=== PATIENT | female | born 2000 | race Caucasian/White ===

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

== ENCOUNTER 2023-12-16 20:12 | Inpatient (IN) | payer BC ==
[~2023-12-16] VITALS: Ht 165.1 cm; Wt 59.4 kg
[2023-12-16 20:17] VITALS: BP 111/72; PULSE 101; O2SAT 98
[2023-12-16 20:46] LABS: BASOPHILS % (AUTO) 0.6 % (0.0-2.0); EOSINOPHILS # (AUTO) 0.2 K/uL (0-0.4); EOSINOPHILS % (AUTO) 2.3 % (0.0-4.0); HEMATOCRIT 38.4 % (36-48); LYMPHOCYTES # (AUTO) 2.5 K/uL (2.5-16.5); MEAN CORPUSCULAR HEMOGLOBIN 29 pg (27-31); MEAN CORPUSCULAR HGB CONC 34 g/dL (33-37); MEAN CORPUSCULAR VOLUME 86.1 fL (80-94); MONOCYTES # (AUTO) 0.4 K/uL (0.8-1.0); MONOCYTES % (AUTO) 5.7 % (1.7-9.3); NEUTROPHILS # (AUTO) 4.7 K/uL (1.8-7.7); NEUTROPHILS % (AUTO) 59.4 % (42.2-75.2); PLATELET COUNT (AUTO) 231 K/uL (140-450); RED BLOOD CELL COUNT(AUTO) 4.47 MIL/uL (4.20-5.40); RED CELL DISTRIBUTION WIDTH 12.7 % (11.6-13.7); WHITE BLOOD COUNT (AUTO) 7.9 K/uL (4.8-10.8)
[2023-12-16 20:55] LABS: ANION GAP 17.3 (8-16); CALCIUM 7.9 mg/dL (8.5-10.1); CARBON DIOXIDE 23.8 mmol/L (21-32); CREATININE 0.6 mg/dL (0.6-1.3); POTASSIUM 3.1 mmol/L (3.5-5.1)
[2023-12-16 20:56] LABS: INR 1.22 (0.8-1.2); PROTHROMBIN TIME 12.7 secs (10.8-13.4)
[2023-12-16 21:02] LABS: ACETAMINOPHEN < 0.5 ug/ml (10-30); ALANINE AMINOTRANSFERASE 24 U/L (12-78); ALBUMIN 3.8 g/dL (3.4-5.0); ALCOHOL, BLOOD 23 mg/dL (<10); ALKALINE PHOSPHATASE 52 U/L (50-136); ASPARTATE AMINOTRANSFERASE 13 U/L (15-37); BILIRUBIN,DIRECT 0.3 mg/dL (0.0-0.3); MAGNESIUM 1.9 mg/dL (1.8-2.4); PHOSPHORUS 5.2 mg/dL (2.5-4.9); SALICYLATE < 2.8 mg/dL (2.8-20.0); TOTAL BILIRUBIN 1.4 mg/dL (0.0-1.0); TOTAL PROTEIN, SERUM 6.6 g/dL (6.4-8.2)
[2023-12-16 21:18] LABS: APPEARANCE,URINE CLEAR (CLEAR); BILIRUBIN,URINE NEGATIVE (NEGATIVE); BLOOD, URINE TRACE-I (NEGATIVE); COLOR,URINE YELLOW (YELLOW); LEUKOCYTE ESTERASE ,URINE NEGATIVE (NEGATIVE); NITRITE, URINE NEGATIVE (NEGATIVE); PROTEIN,URINE NEGATIVE (NEGATIVE); UGLUCOSE NEGATIVE (NEGATIVE); UROBILINOGEN,URINE 0.2 EU/dL (0.2 - 1)
[2023-12-16] MEDS ORDERED: ACETAMINOPHEN 325 MG TAB PO PRN (21:20)
[2023-12-16] MEDS ORDERED: ONDANSETRON 4 MG/2 ML VIAL IVP PRN (21:20)
[2023-12-16 21:25] LABS: BACTERIA,URINE FEW /HPF (None Seen); RBC,URINE 0-5 /HPF (0-5); SQUAMOUS EPITHELIAL CELL,UR 0-3 (FEW) /LPF (0-3 (FEW)); WBC,URINE 0-5 /HPF (0-5)
[2023-12-16 21:29] LABS: AMPHETAMINE, URINE NEGATIVE ng/ml (NEG <=1000); BARBITURATE, URINE NEGATIVE ng/ml (NEG <=200); BENZODIAZEPINE, URINE NEGATIVE ng/mL (NEG <=200); CANNABINOID, URINE POSITIVE ng/mL (NEG <=50); COCAINE, URINE NEGATIVE ng/mL (NEG <=300); OPIATE, URINE NEGATIVE ng/mL (NEG <=2000); PHENCYCLIDINE SCREEN,URINE NEGATIVE ng/mL (NEG <=25)
[2023-12-16] MEDS: NACL 0.9% 1,000 ML IV SCH (21:56)
[2023-12-16] MEDS ORDERED: BUPR-10 PO (22:17)
[2023-12-16] MEDS ORDERED: ESCI5TAB PO (22:17)
[2023-12-16] MEDS ORDERED: CLON0.5T1 PO (22:17)
[2023-12-17] VITALS (14 sets, daily range): BP systolic 98–133; BP diastolic 56–84; PULSE 118–138; RESP 14–30; TEMP 97.8–98.5; O2SAT 81–100
[2023-12-17] MEDS: POTASSIUM CHLORIDE 10 MEQ TABER PO ONE (00:23)
[2023-12-17] MEDS: LORazepam 2 MG/ML VIAL IVP PRN (01:08)
[2023-12-17] MEDS: KCL 20 MEQ IN 100 mL PREMIX 100 ML IV ONE (02:40)
[2023-12-17] MEDS: MAG SULF 2000 MG/WATER PREMIX 50 ML IV ONE (06:09)
[2023-12-17] MEDS: LORazepam 2 MG/ML VIAL IVP ONE (06:42)
[2023-12-17] MEDS ORDERED: LORazepam 2 MG/ML VIAL IVP PRN (07:00)
[2023-12-17 07:18] LABS: BASOPHILS # (AUTO) 0.1 K/uL (0.00-0.22); BASOPHILS % (AUTO) 0.6 % (0.0-2.0); EOSINOPHILS % (AUTO) 0.1 % (0.0-4.0); HEMATOCRIT 36.6 % (36-48); HEMOGLOBIN 12.4 g/dL (12.0-16.0); LYMPHOCYTES # (AUTO) 1.2 K/uL (2.5-16.5); MEAN CORPUSCULAR HEMOGLOBIN 29 pg (27-31); MEAN CORPUSCULAR HGB CONC 34 g/dL (33-37); MONOCYTES # (AUTO) 0.5 K/uL (0.8-1.0); MONOCYTES % (AUTO) 4.7 % (1.7-9.3); NEUTROPHILS % (AUTO) 83.6 % (42.2-75.2); PLATELET COUNT (AUTO) 247 K/uL (140-450); RED BLOOD CELL COUNT(AUTO) 4.25 MIL/uL (4.20-5.40); RED CELL DISTRIBUTION WIDTH 12.9 % (11.6-13.7); WHITE BLOOD COUNT (AUTO) 10.8 K/uL (4.8-10.8)
[2023-12-17 07:29] LABS: ANION GAP 15.3 (8-16); CALCIUM 8.5 mg/dL (8.5-10.1); CARBON DIOXIDE 23.4 mmol/L (21-32); CREATININE 0.7 mg/dL (0.6-1.3); POTASSIUM 3.7 mmol/L (3.5-5.1)
[2023-12-17] MEDS: ENOXAPARIN 40 MG/0.4 ML SYR SUBQ SCH (18:00)
[2023-12-17 19:50] LABS: BLOOD GAS PCO2 33.6 mmHg (35-45); BLOOD GAS PH 7.398 (7.35-7.45)
[2023-12-17 19:51] LABS: BLOOD GAS BASE EXCESS -3.7 mmol/L (-2.0-2.0); BLOOD GAS HCO3 20.3 mmol/L (22-26)
[2023-12-17 19:52] LABS: BLOOD GAS O2 SAT% 94.6 % (92.0-98.5)
[2023-12-17] MEDS: LORazepam 2 MG/ML VIAL IM/IVP PRN (19:57)
[2023-12-18] VITALS (27 sets, daily range): BP systolic 109–151; BP diastolic 51–119; PULSE 107–132; RESP 17–42; TEMP 97.6–99; O2SAT 85–99
[2023-12-18] MEDS: NACL 0.9% 1,000 ML IV SCH (01:07)
[2023-12-18 05:15] LABS: BASOPHILS % (AUTO) 0.2 % (0.0-2.0); HEMATOCRIT 37.1 % (36-48); HEMOGLOBIN 12.4 g/dL (12.0-16.0); LYMPHOCYTES # (AUTO) 0.5 K/uL (2.5-16.5); LYMPHOCYTES % (AUTO) 2.3 % (20.5-51.1); MEAN CORPUSCULAR HEMOGLOBIN 29 pg (27-31); MEAN CORPUSCULAR HGB CONC 33 g/dL (33-37); MEAN CORPUSCULAR VOLUME 85.8 fL (80-94); MONOCYTES # (AUTO) 0.4 K/uL (0.8-1.0); MONOCYTES % (AUTO) 1.6 % (1.7-9.3); NEUTROPHILS # (AUTO) 22.7 K/uL (1.8-7.7); NEUTROPHILS % (AUTO) 95.9 % (42.2-75.2); PLATELET COUNT (AUTO) 247 K/uL (140-450); RED BLOOD CELL COUNT(AUTO) 4.33 MIL/uL (4.20-5.40); RED CELL DISTRIBUTION WIDTH 13.2 % (11.6-13.7); WHITE BLOOD COUNT (AUTO) 23.7 K/uL (4.8-10.8)
[2023-12-18 08:28] LABS: ANION GAP 16.8 (8-16); CALCIUM 8.7 mg/dL (8.5-10.1); CARBON DIOXIDE 22.1 mmol/L (21-32); CREATININE 0.7 mg/dL (0.6-1.3); POTASSIUM 3.9 mmol/L (3.5-5.1)
[2023-12-18] MEDS: ENOXAPARIN 40 MG/0.4 ML SYR SUBQ SCH (08:54)
[2023-12-18] MEDS: DEXMEDETOMIDINE HCL 400 MCG in NACL 0.9% 96 ML IV PRN (11:04)
[2023-12-18] MEDS ORDERED: PIPERACILLIN/TAZOBACTAM 3.375 GM VIAL IV ONE (19:58)
[2023-12-18] MEDS: PIPERACILLIN/TAZOBACTAM 3.375 GM in DEXTROSE 5% 50 ML IV SCH (20:03)
[2023-12-19] VITALS (30 sets, daily range): BP systolic 57–122; BP diastolic 45–76; PULSE 110–126; RESP 22–56; TEMP 97.6–102.3; O2SAT 90–100
[2023-12-19] MEDS ORDERED: PIPERACILLIN/TAZOBACTAM 3.375 GM VIAL IV ONE (00:23)
[2023-12-19] MEDS: ALBUTEROL SULFATE/IPRATROPIU 3 ML SOL IH ONE (01:14)
[2023-12-19] MEDS: ALBUTEROL 0.083% 2.5 MG/3 ML NEBU INH SCH (03:00)
[2023-12-19] MEDS: ALBUTEROL SULFATE/IPRATROPIU 3 ML SOL IH SCH (03:00)
[2023-12-19 04:32] LABS: BLOOD GAS PCO2 33.2 mmHg (35-45); BLOOD GAS PH 7.469 (7.35-7.45)
[2023-12-19 04:33] LABS: BLOOD GAS HCO3 23.6 mmol/L (22-26); BLOOD GAS PO2 54.5 mmHg (75-100)
[2023-12-19 04:34] LABS: BLOOD GAS BASE EXCESS 0.4 mmol/L (-2.0-2.0)
[2023-12-19 04:35] LABS: BLOOD GAS O2 SAT% 0.7 % (92.0-98.5)
[2023-12-19] MEDS: ETOMIDATE 20 MG/10 ML VIAL IVP ONE (05:02)
[2023-12-19] MEDS: ROCURONIUM 50 MG/5 ML VIAL IV ONE (05:04)
[2023-12-19] MEDS: PROPOFOL 1000 MG/100 ML PREMIX 100 ML IV PRN (05:53)
[2023-12-19] MEDS: levETIRAcetam 1,000 MG in NACL 0.9% 100 ML IV ONE (06:05)
[2023-12-19] MEDS ORDERED: PROPOFOL 1000 MG/100 ML PREMIX 100 ML IV PRN (06:05)
[2023-12-19] MEDS ORDERED: LORazepam 2 MG/ML VIAL IVP PRN (06:05)
[2023-12-19 06:36] LABS: ANION GAP 15.7 (8-16); CALCIUM 8.6 mg/dL (8.5-10.1); CARBON DIOXIDE 21.6 mmol/L (21-32); CREATININE 0.6 mg/dL (0.6-1.3); POTASSIUM 4.3 mmol/L (3.5-5.1)
[2023-12-19 06:44] LABS: BASOPHILS % (AUTO) 0.1 % (0.0-2.0); EOSINOPHILS % (AUTO) 0.1 % (0.0-4.0); HEMATOCRIT 34.8 % (36-48); HEMOGLOBIN 11.8 g/dL (12.0-16.0); LYMPHOCYTES # (AUTO) 0.6 K/uL (2.5-16.5); LYMPHOCYTES % (AUTO) 2.8 % (20.5-51.1); MEAN CORPUSCULAR HEMOGLOBIN 29 pg (27-31); MEAN CORPUSCULAR HGB CONC 34 g/dL (33-37); MEAN CORPUSCULAR VOLUME 86.6 fL (80-94); MONOCYTES # (AUTO) 0.3 K/uL (0.8-1.0); MONOCYTES % (AUTO) 1.3 % (1.7-9.3); NEUTROPHILS # (AUTO) 19.3 K/uL (1.8-7.7); NEUTROPHILS % (AUTO) 95.7 % (42.2-75.2); PLATELET COUNT (AUTO) 178 K/uL (140-450); RED BLOOD CELL COUNT(AUTO) 4.02 MIL/uL (4.20-5.40); RED CELL DISTRIBUTION WIDTH 13.2 % (11.6-13.7); WHITE BLOOD COUNT (AUTO) 20.1 K/uL (4.8-10.8)
[2023-12-19 07:32] LABS: BLOOD GAS BASE EXCESS -1.3 mmol/L (-2.0-2.0); BLOOD GAS PCO2 32.2 mmHg (35-45); BLOOD GAS PH 7.452 (7.35-7.45); BLOOD GAS PO2 177.8 mmHg (75-100)
[2023-12-19 07:33] LABS: BLOOD GAS O2 SAT% 99.3 % (92.0-98.5)
[2023-12-19] MEDS: levETIRAcetam 1,000 MG in NACL 0.9% 100 ML IV SCH (08:31)
[2023-12-19] MEDS: ACETAMINOPHEN 325 MG TAB NG PRN (13:04)
[2023-12-19] MEDS: lamoTRIgine 25 MG TAB PO SCH (21:05)
[2023-12-20] VITALS (33 sets, daily range): BP systolic 110–127; BP diastolic 64–81; PULSE 85–114; RESP 21–34; TEMP 98.2–101.8; O2SAT 90–100
[2023-12-20 05:26] LABS: BASOPHILS % (AUTO) 0.2 % (0.0-2.0); EOSINOPHILS % (AUTO) 0.1 % (0.0-4.0); HEMATOCRIT 30.2 % (36-48); HEMOGLOBIN 10.1 g/dL (12.0-16.0); LYMPHOCYTES # (AUTO) 0.6 K/uL (2.5-16.5); LYMPHOCYTES % (AUTO) 3.2 % (20.5-51.1); MEAN CORPUSCULAR HEMOGLOBIN 29 pg (27-31); MEAN CORPUSCULAR HGB CONC 33 g/dL (33-37); MEAN CORPUSCULAR VOLUME 86.9 fL (80-94); MONOCYTES # (AUTO) 0.2 K/uL (0.8-1.0); MONOCYTES % (AUTO) 1.3 % (1.7-9.3); NEUTROPHILS # (AUTO) 16.7 K/uL (1.8-7.7); NEUTROPHILS % (AUTO) 95.2 % (42.2-75.2); PLATELET COUNT (AUTO) 167 K/uL (140-450); RED BLOOD CELL COUNT(AUTO) 3.48 MIL/uL (4.20-5.40); RED CELL DISTRIBUTION WIDTH 12.9 % (11.6-13.7); WHITE BLOOD COUNT (AUTO) 17.5 K/uL (4.8-10.8)
[2023-12-20 05:49] LABS: ANION GAP 14.8 (8-16); CALCIUM 8.4 mg/dL (8.5-10.1); CARBON DIOXIDE 22.6 mmol/L (21-32); CREATININE 0.5 mg/dL (0.6-1.3); POTASSIUM 3.4 mmol/L (3.5-5.1)
[2023-12-20] MEDS ORDERED: ALBUTEROL SULFATE/IPRATROPIU 3 ML SOL IH PRN (07:00)
[2023-12-20] MEDS: POTASSIUM CHLORIDE 20% 40 MEQ/15 ML UDC GT SCH (15:25)
[2023-12-20] MEDS: ALBUTEROL SULFATE/IPRATROPIU 3 ML SOL IH SCH (19:03)
[2023-12-20] MEDS: DEXAMETHASONE 4 MG/ML VIAL IVP SCH (20:54)
[2023-12-21] VITALS (29 sets, daily range): BP systolic 116–142; BP diastolic 62–90; PULSE 69–118; RESP 19–35; TEMP 97.9–99.2; O2SAT 90–100
[2023-12-21 05:21] LABS: ANION GAP 14.1 (8-16); CALCIUM 8.3 mg/dL (8.5-10.1); CARBON DIOXIDE 25.5 mmol/L (21-32); CREATININE 0.4 mg/dL (0.6-1.3); POTASSIUM 3.6 mmol/L (3.5-5.1)
[2023-12-21 05:24] LABS: BASOPHILS # (AUTO) 0.1 K/uL (0.00-0.22); BASOPHILS % (AUTO) 0.6 % (0.0-2.0); EOSINOPHILS % (AUTO) 0.2 % (0.0-4.0); HEMATOCRIT 27.8 % (36-48); HEMOGLOBIN 9.4 g/dL (12.0-16.0); LYMPHOCYTES # (AUTO) 0.6 K/uL (2.5-16.5); LYMPHOCYTES % (AUTO) 3.9 % (20.5-51.1); MEAN CORPUSCULAR HEMOGLOBIN 29 pg (27-31); MEAN CORPUSCULAR HGB CONC 34 g/dL (33-37); MONOCYTES # (AUTO) 0.3 K/uL (0.8-1.0); MONOCYTES % (AUTO) 2.2 % (1.7-9.3); NEUTROPHILS # (AUTO) 14.7 K/uL (1.8-7.7); NEUTROPHILS % (AUTO) 93.1 % (42.2-75.2); PLATELET COUNT (AUTO) 199 K/uL (140-450); RED BLOOD CELL COUNT(AUTO) 3.23 MIL/uL (4.20-5.40); RED CELL DISTRIBUTION WIDTH 12.9 % (11.6-13.7); WHITE BLOOD COUNT (AUTO) 15.8 K/uL (4.8-10.8)
[2023-12-21] MEDS: PANTOPRAZOLE 40 MG INJ VIAL IVP SCH (09:30)
[2023-12-21 15:30] LABS: BLOOD GAS BASE EXCESS -2.8 mmol/L (-2.0-2.0); BLOOD GAS PCO2 33.5 mmHg (35-45); BLOOD GAS PH 7.416 (7.35-7.45); BLOOD GAS PO2 63.9 mmHg (75-100)
[2023-12-21 15:31] LABS: BLOOD GAS O2 SAT% 92.7 % (92.0-98.5)
[2023-12-22] VITALS (12 sets, daily range): BP systolic 104–122; BP diastolic 41–70; PULSE 60–123; RESP 15–52; TEMP 97.6–98.6; O2SAT 91–100
[2023-12-22 05:19] LABS: BASOPHILS % (AUTO) 0.2 % (0.0-2.0); EOSINOPHILS % (AUTO) 0.1 % (0.0-4.0); HEMATOCRIT 30.4 % (36-48); HEMOGLOBIN 10.2 g/dL (12.0-16.0); LYMPHOCYTES # (AUTO) 0.9 K/uL (2.5-16.5); LYMPHOCYTES % (AUTO) 7.3 % (20.5-51.1); MEAN CORPUSCULAR HEMOGLOBIN 29 pg (27-31); MEAN CORPUSCULAR HGB CONC 34 g/dL (33-37); MEAN CORPUSCULAR VOLUME 86.3 fL (80-94); MONOCYTES # (AUTO) 0.6 K/uL (0.8-1.0); MONOCYTES % (AUTO) 4.8 % (1.7-9.3); NEUTROPHILS # (AUTO) 10.3 K/uL (1.8-7.7); NEUTROPHILS % (AUTO) 87.6 % (42.2-75.2); PLATELET COUNT (AUTO) 248 K/uL (140-450); RED BLOOD CELL COUNT(AUTO) 3.52 MIL/uL (4.20-5.40); RED CELL DISTRIBUTION WIDTH 12.8 % (11.6-13.7); WHITE BLOOD COUNT (AUTO) 11.7 K/uL (4.8-10.8)
[2023-12-22 05:53] LABS: ANION GAP 14.8 (8-16); CALCIUM 8.6 mg/dL (8.5-10.1); CARBON DIOXIDE 24.9 mmol/L (21-32); CREATININE 0.5 mg/dL (0.6-1.3); POTASSIUM 3.7 mmol/L (3.5-5.1)
[2023-12-22] MEDS ORDERED: phenoL 1.4% SPRAY 20 ML BTL MM PRN (16:15)
[2023-12-23] VITALS (13 sets, daily range): BP systolic 104–120; BP diastolic 57–78; PULSE 55–116; RESP 16–19; TEMP 97.6–98.2; O2SAT 95–98
[2023-12-23] MEDS: PIPERACILLIN/TAZOBACTAM 3.375 GM VIAL IV ONE ×2 (00:28→05:10)
[2023-12-23 06:43] LABS: BASOPHILS % (AUTO) 0.3 % (0.0-2.0); EOSINOPHILS % (AUTO) 0.2 % (0.0-4.0); HEMOGLOBIN 10.7 g/dL (12.0-16.0); LYMPHOCYTES # (AUTO) 0.9 K/uL (2.5-16.5); LYMPHOCYTES % (AUTO) 9.8 % (20.5-51.1); MEAN CORPUSCULAR HEMOGLOBIN 29 pg (27-31); MEAN CORPUSCULAR HGB CONC 35 g/dL (33-37); MEAN CORPUSCULAR VOLUME 84.9 fL (80-94); MONOCYTES # (AUTO) 0.6 K/uL (0.8-1.0); MONOCYTES % (AUTO) 7.1 % (1.7-9.3); NEUTROPHILS # (AUTO) 7.4 K/uL (1.8-7.7); NEUTROPHILS % (AUTO) 82.6 % (42.2-75.2); PLATELET COUNT (AUTO) 281 K/uL (140-450); RED BLOOD CELL COUNT(AUTO) 3.65 MIL/uL (4.20-5.40); RED CELL DISTRIBUTION WIDTH 12.7 % (11.6-13.7)
[2023-12-23 07:03] LABS: ANION GAP 11.1 (8-16); CALCIUM 8.5 mg/dL (8.5-10.1); CARBON DIOXIDE 28.4 mmol/L (21-32); CREATININE 0.4 mg/dL (0.6-1.3); POTASSIUM 3.5 mmol/L (3.5-5.1)
[2023-12-24] VITALS (12 sets, daily range): BP systolic 100–118; BP diastolic 51–78; PULSE 54–85; RESP 16–19; TEMP 97.3–98.5; O2SAT 96–99
[2023-12-24 06:52] LABS: BASOPHILS % (AUTO) 0.1 % (0.0-2.0); EOSINOPHILS # (AUTO) 0.1 K/uL (0-0.4); EOSINOPHILS % (AUTO) 0.6 % (0.0-4.0); HEMATOCRIT 32.3 % (36-48); LYMPHOCYTES # (AUTO) 1.5 K/uL (2.5-16.5); LYMPHOCYTES % (AUTO) 15.5 % (20.5-51.1); MEAN CORPUSCULAR HEMOGLOBIN 29 pg (27-31); MEAN CORPUSCULAR HGB CONC 34 g/dL (33-37); MEAN CORPUSCULAR VOLUME 84.8 fL (80-94); MONOCYTES # (AUTO) 0.8 K/uL (0.8-1.0); MONOCYTES % (AUTO) 8.3 % (1.7-9.3); NEUTROPHILS # (AUTO) 7.4 K/uL (1.8-7.7); NEUTROPHILS % (AUTO) 75.5 % (42.2-75.2); PLATELET COUNT (AUTO) 334 K/uL (140-450); RED BLOOD CELL COUNT(AUTO) 3.81 MIL/uL (4.20-5.40); RED CELL DISTRIBUTION WIDTH 12.5 % (11.6-13.7); WHITE BLOOD COUNT (AUTO) 9.8 K/uL (4.8-10.8)
[2023-12-24 07:01] LABS: ANION GAP 10.7 (8-16); CALCIUM 8.5 mg/dL (8.5-10.1); CARBON DIOXIDE 28.5 mmol/L (21-32); CREATININE 0.5 mg/dL (0.6-1.3); POTASSIUM 3.2 mmol/L (3.5-5.1)
[2023-12-24] MEDS: POTASSIUM CHLORIDE 10 MEQ TABER PO SCH (12:19)
[2023-12-25] VITALS (8 sets, daily range): BP systolic 103–121; BP diastolic 56–68; PULSE 58–80; RESP 16–19; TEMP 96.7–98.1; O2SAT 93–99
[2023-12-25 06:53] LABS: HEMATOCRIT 35.7 % (36-48); HEMOGLOBIN 11.9 g/dL (12.0-16.0); MEAN CORPUSCULAR HEMOGLOBIN 29 pg (27-31); MEAN CORPUSCULAR HGB CONC 33 g/dL (33-37); MEAN CORPUSCULAR VOLUME 85.4 fL (80-94); PLATELET COUNT (AUTO) 434 K/uL (140-450); RED BLOOD CELL COUNT(AUTO) 4.18 MIL/uL (4.20-5.40); RED CELL DISTRIBUTION WIDTH 12.5 % (11.6-13.7); WHITE BLOOD COUNT (AUTO) 11.3 K/uL (4.8-10.8)
[2023-12-25 07:01] LABS: ANION GAP 12.9 (8-16); CARBON DIOXIDE 27.5 mmol/L (21-32); CREATININE 0.6 mg/dL (0.6-1.3); POTASSIUM 3.4 mmol/L (3.5-5.1)
[2023-12-25 07:58] LABS: LYMPHOCYTES % (MANUAL) 17 % (20-46); MONOCYTES % (MANUAL) 4 % (5-12)
[2023-12-25 07:59] LABS: EOSINOPHILS % (MANUAL) 4 % (0-4)
[2023-12-25] MEDS: VENLAFAXINE 37.5 MG TAB PO SCH (09:00)
[2023-12-25] MEDS ORDERED: VENLAFAXINE XR 75 MG CAPER PO SCH (09:00)
[2023-12-25] MEDS: POTASSIUM CHLORIDE 10 MEQ TABER PO PRN (09:04)
[2023-12-26] VITALS (10 sets, daily range): BP systolic 98–101; BP diastolic 53–61; PULSE 62–103; RESP 16–21; TEMP 97.8–98.6; O2SAT 94–97
[2023-12-26 05:02] LABS: BASOPHILS # (AUTO) 0.1 K/uL (0.00-0.22); BASOPHILS % (AUTO) 0.5 % (0.0-2.0); EOSINOPHILS # (AUTO) 0.4 K/uL (0-0.4); HEMATOCRIT 33.3 % (36-48); LYMPHOCYTES # (AUTO) 3.3 K/uL (2.5-16.5); LYMPHOCYTES % (AUTO) 28.3 % (20.5-51.1); MEAN CORPUSCULAR HEMOGLOBIN 28 pg (27-31); MEAN CORPUSCULAR HGB CONC 33 g/dL (33-37); MEAN CORPUSCULAR VOLUME 85.7 fL (80-94); MONOCYTES # (AUTO) 0.7 K/uL (0.8-1.0); MONOCYTES % (AUTO) 5.7 % (1.7-9.3); NEUTROPHILS # (AUTO) 7.3 K/uL (1.8-7.7); NEUTROPHILS % (AUTO) 62.5 % (42.2-75.2); PLATELET COUNT (AUTO) 384 K/uL (140-450); RED BLOOD CELL COUNT(AUTO) 3.89 MIL/uL (4.20-5.40); RED CELL DISTRIBUTION WIDTH 12.8 % (11.6-13.7); WHITE BLOOD COUNT (AUTO) 11.7 K/uL (4.8-10.8)
[2023-12-26 06:41] LABS: ANION GAP 11.2 (8-16); CALCIUM 8.8 mg/dL (8.5-10.1); CREATININE 0.6 mg/dL (0.6-1.3); POTASSIUM 3.2 mmol/L (3.5-5.1)
[2023-12-26] MEDS ORDERED: POTASSIUM CHLORIDE 10 MEQ TABER PO ONE (08:15)
[2023-12-26] MEDS ORDERED: AZIT250T4 PO (09:16)
[2023-12-26] MEDS ORDERED: LAM25 PO (09:16)
[2023-12-26] MEDS ORDERED: VENL37.57 PO (09:16)
[2023-12-26] MEDS: guaiFENesin 20 MG/ML UDC PO PRN (11:23)
[2023-12-27] VITALS (7 sets, daily range): BP systolic 96–102; BP diastolic 57–68; PULSE 66–97; RESP 16–19; TEMP 96.9–208.6; O2SAT 96–98
[2023-12-27] MEDS: TRIAMCINOLONE 0.1% CRM 15 GM TUBE TP SCH (09:00)
[2023-12-27 10:16] LABS: BASOPHILS # (AUTO) 0.2 K/uL (0.00-0.22); BASOPHILS % (AUTO) 1.3 % (0.0-2.0); EOSINOPHILS # (AUTO) 0.3 K/uL (0-0.4); EOSINOPHILS % (AUTO) 2.5 % (0.0-4.0); LYMPHOCYTES # (AUTO) 1.8 K/uL (2.5-16.5); LYMPHOCYTES % (AUTO) 13.9 % (20.5-51.1); MEAN CORPUSCULAR HEMOGLOBIN 29 pg (27-31); MEAN CORPUSCULAR HGB CONC 34 g/dL (33-37); MEAN CORPUSCULAR VOLUME 85.9 fL (80-94); MONOCYTES # (AUTO) 0.5 K/uL (0.8-1.0); MONOCYTES % (AUTO) 3.7 % (1.7-9.3); NEUTROPHILS # (AUTO) 10.4 K/uL (1.8-7.7); NEUTROPHILS % (AUTO) 78.6 % (42.2-75.2); PLATELET COUNT (AUTO) 435 K/uL (140-450); RED BLOOD CELL COUNT(AUTO) 4.53 MIL/uL (4.20-5.40); RED CELL DISTRIBUTION WIDTH 12.9 % (11.6-13.7); WHITE BLOOD COUNT (AUTO) 13.2 K/uL (4.8-10.8)
[2023-12-27 10:29] LABS: ALBUMIN 3.2 g/dL (3.4-5.0); ANION GAP 12.7 (8-16); CALCIUM 9.1 mg/dL (8.5-10.1); CARBON DIOXIDE 27.1 mmol/L (21-32); CREATININE 0.7 mg/dL (0.6-1.3); POTASSIUM 3.8 mmol/L (3.5-5.1); TOTAL BILIRUBIN 0.5 mg/dL (0.0-1.0); TOTAL PROTEIN, SERUM 6.9 g/dL (6.4-8.2)
[2023-12-27] MEDS ORDERED: LEVO-481 PO (17:06)
== END 2023-12-27 18:25 | DRG 917 ==
LOC: MED 20:12 → MTU 21:21 → MIC 12-17 06:58 → MTU 12-22 22:25
PROVIDERS: ADMIT Family Medicine; ATTEND Family Medicine
PROC: 5A0945A Assistance with Respiratory Ventilation, 24-96 Consecutive Hours, High Flow/Velocity Cannula (ICD-10-PCS; principal; 2023-12-18)
PROC: 5A09357 Assistance with Respiratory Ventilation, Less than 24 Consecutive Hours, Continuous Positive Airway Pressure (ICD-10-PCS; 2023-12-19)
PROC: 5A1945Z Respiratory Ventilation, 24-96 Consecutive Hours (ICD-10-PCS; 2023-12-19)
PROC: 0BH17EZ Insertion of Endotracheal Airway into Trachea, Via Natural or Artificial Opening (ICD-10-PCS; 2023-12-19)
PROC: 4A10X4Z Monitoring of Central Nervous Electrical Activity, External Approach (ICD-10-PCS; 2023-12-19)
PROC: 5A0935A Assistance with Respiratory Ventilation, Less than 24 Consecutive Hours, High Flow/Velocity Cannula (ICD-10-PCS; 2023-12-21)
DX: T50.991A Poisoning by other drugs, medicaments and biological substances, accidental (unintentional), initial encounter (principal); J69.0 Pneumonitis due to inhalation of food and vomit; J96.01 Acute respiratory failure with hypoxia; R45.851 Suicidal ideations; G93.40 Encephalopathy, unspecified; Z99.11 Dependence on respirator [ventilator] status; F41.1 Generalized anxiety disorder; F32.9 Major depressive disorder, single episode, unspecified; Z20.822 Contact with and (suspected) exposure to COVID-19; Y92.89 Other specified places as the place of occurrence of the external cause
CPT/HCPCS: 36415; 36600; 70450; 71045; 71275; 80048; 80053; 80076; 80305; 81001; 82803; 83735; 84100; 84703; 85025; 85379; 85610; 87081; 92526; 93005; 93970; 94002; 94003; 94640; 95816; 96374; 96375; 97110; 97116; 97163-GP; 97530; 99285; 99291; C9113; G0480; G0482; J1100; J1650; J1953; J2060; J2543; J2704; J3475; J3480; J7060; J7613; Q0092; Q9967